=== PATIENT | male | born 1980 | race Caucasian/White ===

== ENCOUNTER 2016-08-29 17:39 | Emergency (ER) | payer MEDICAID ==
[2016-03-16 12:56] VITALS: BMI 32.6
[~2016-08-29 17:39] MED LIST: HYDROCODONE-APA1 TAB PO; KLONOPIN1 MG PO
== END 2016-08-29 19:52 | disposition home or self-care (01) ==
LOC: D.ER 17:39
DX: S06.0X9A Concussion with loss of consciousness of unspecified duration, initial encounter (principal); W01.0XXA Fall on same level from slipping, tripping and stumbling without subsequent striking against object, initial encounter; Y93.01 Activity, walking, marching and hiking; Y92.89 Other specified places as the place of occurrence of the external cause; S60.221A Contusion of right hand, initial encounter; S16.1XXA Strain of muscle, fascia and tendon at neck level, initial encounter; Z95.0 Presence of cardiac pacemaker; M54.12 Radiculopathy, cervical region; F17.200 Nicotine dependence, unspecified, uncomplicated

== ENCOUNTER 2016-10-10 12:00 | Emergency (ER) | payer MEDICAID ==
[2016-03-16 12:56] VITALS: BMI 32.6
[2016-10-10 13:37] LABS: BASOPHILS 0.2 % (0.0-2.0); EOSINOPHILS 0.9 % (0-7); HEMATOCRIT 44.8 % (42.0-54.0); HEMOGLOBIN 14.8 g/dL (13.5-17.5); IMMATURE GRANULOCYTES 0.3 % (0-5); MCH 30.5 pg (26.0-34.0); MCV 92.2 fL (80.0-100.0); MEAN PLATELET VOLUME 10.2 fL (7.4-10.4); MONOCYTES 7.7 % (2-11); NEUTROPHILS 70.9 % (40-80); PLATELET COUNT 230 10x3/uL (130-400); RBC 4.86 10x6/uL (4.20-6.10); RDW 14.5 % (11.5-14.5); WBC 12.1 10x3/uL (4.8-10.8)
[2016-10-10 14:02] LABS: ALBUMIN 3.5 g/dL (3.4-5.0); ALKALINE PHOSPHATASE 72 U/L (46-116); ALT (SGPT) 49 U/L (10-68); BILIRUBIN - TOTAL 0.18 mg/dL (0.2-1.3); CALC OSMOLALITY 285 mosm/kg (275-300); CALCIUM 9.1 mg/dL (8.5-10.1); CHLORIDE - SERUM 107 mmol/L (98-107); MAGNESIUM - SERUM 1.9 mg/dL (1.8-2.4); POTASSIUM - SERUM 3.7 mmol/L (3.5-5.1); PROTEIN - SERUM 7.4 g/dL (6.4-8.2); SODIUM 143 mmol/L (136-145); UREA NITROGEN 8 mg/dL (7-18); eGFR NON AFRICAN AMERICAN > 90 mL/min (90-120)
[2016-10-10 14:03] LABS: GLUCOSE 145 mg/dL (74-106)
[2016-10-10 14:38] LABS: APPEARANCE CLEAR (CLEAR); BILIRUBIN NEGATIVE (NEGATIVE); COLOR YELLOW (YELLOW); GLUCOSE NEGATIVE (NEGATIVE); KETONE NEGATIVE (NEGATIVE); LEUKOCYTE ESTERASE NEGATIVE (NEGATIVE); NITRITE NEGATIVE (NEGATIVE); PROTEIN NEGATIVE (NEGATIVE); UROBILINOGEN NORMAL (NORMAL)
== END 2016-10-10 16:06 | disposition home or self-care (01) ==
LOC: D.ER 12:00
PROVIDERS: Emergency Medicine
DX: J02.9 Acute pharyngitis, unspecified (principal); Z95.0 Presence of cardiac pacemaker; M54.12 Radiculopathy, cervical region; R00.0 Tachycardia, unspecified

== ENCOUNTER 2017-01-26 21:30 | Emergency (ER) | payer MEDICAID ==
[2016-03-16 12:56] VITALS: BMI 32.6
== END 2017-01-27 01:00 | disposition home or self-care (01) ==
LOC: D.ER 21:30
DX: S16.1XXA Strain of muscle, fascia and tendon at neck level, initial encounter (principal); V53.5XXA Driver of pick-up truck or van injured in collision with car, pick-up truck or van in traffic accident, initial encounter; Y93.89 Activity, other specified; Y92.410 Unspecified street and highway as the place of occurrence of the external cause; S39.012A Strain of muscle, fascia and tendon of lower back, initial encounter; Z95.0 Presence of cardiac pacemaker